=== PATIENT | female | born 1980 | race African-American/Black ===

== ENCOUNTER → 2019-09-04 | Outpatient (CLI) | payer OTHER ==
[~2019-09-04] MED LIST: GADOBENATE DIMEGLUMINE 1 ML IV ONE
[2019-09-04 13:47] LABS: BLOOD UREA NITROGEN 8 mg/dL (7-26); BUN/CREATININE RATIO 10 (6-25); CREATININE, SERUM 0.77 mg/dL (0.57-1.11); EST GLOMERULAR FILTRATION RATE > 60 ML/MIN (60-)
--- NOTE | 2019-09-04 15:05 | Diagnostic Imaging Report ---
MRI of the left foot with and without contrast. History: Recurrent and new soft tissue mass. Left foot mass. Decreased range of motion. Prior surgery. Pain worse with walking. Technique: Multiplanar multisequence MRI of the left foot with and without IV contrast. 20 cc IV gadolinium contrast material was administered. Comparison: <None.> Findings: 5.0 x 1.7 x 1.8 cm lobular enhancing soft tissue mass intimately associated with the medial cord of the plantar fascia distally at the level of the mid/distal first metatarsal. This is located immediately deep to the skin surface. No cystic component is seen. No underlying osseous involvement is seen. This is consistent with a plantar fibroma. The visualized muscles are otherwise normal in size, signal intensity and morphology. No ligamentous or tendon tear. No bone marrow edema or osseous erosion. No acute fracture, subluxation or avascular necrosis. The visualized neurovascular bundles are intact. Impression: 5.0 x 1.7 x 1.8 cm lobular enhancing soft tissue mass intimately associated with the medial cord of the plantar fascia distally at the level of the mid/distal first metatarsal. This is located immediately deep to the skin surface. No cystic component is seen. No underlying osseous involvement is seen. This is consistent with a plantar fibroma. Signed by: Dr. Martin Pike M.D. on 09/04/2019 3:02 PM
== END ==
LOC: MRI 12:44
PROVIDERS: ATTEND Podiatrist
DX: M79.672 Pain in left foot (principal); M72.2 Plantar fascial fibromatosis; R22.42 Localized swelling, mass and lump, left lower limb
CPT/HCPCS: 36415; 73720; 82565; 84520; A9577